=== PATIENT | male | born 1950 | race Caucasian/White ===

== ENCOUNTER 2016-12-05 18:53 | Emergency (ER) | payer MEDICARE, BC ==
--- NOTE | ~2016-12-05 | CR126 ---
[facility]. [facility] A Service of [facility] & [facility] RADIOLOGY TEXT RESULTS PATIENT: ANNY MARQUEZ LOCATION: SED : 48 UNIT #: [id number] AGE: [address]: DELMI MUNOZ SEX: M ORDER DR: [id number] [place] [id number] MR#: [id number] Acc #: [id number] NAME: ANNY MARQUEZ : 1950 SEX: M STUDY DATE/TIME: 12/05/2016 19:12 UNIT: SED ROOM: STUDY DESCRIPTION: CR Foot Complete Min 3 View Lt Attending Physician: Delmi Munoz Ordering Physician: Delmi Munoz Primary Care Physician: Julian Davalos M.D. MEDICAL IMAGING REPORT This report is preliminary unless electronic signature is present. EXAM Left foot, 3 views. INDICATIONS Left foot pain today. COMPARISON No comparisons. 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 There is no definite fracture. There are midfoot degenerative changes. No evidence for dislocation. IMPRESSION No acute findings. Degenerative changes as described. Dictated by... Hubert Phelps M.D. THIS IS AN ELECTRONICALLY VERIFIED REPORT Hubert Phelps M.D. at 12/10/2016 1:32 PM RADHA/marine TD: 12/06/2016 09:07 JOB #: [id number] MEDICAL IMAGING REPORT Page 1 of 1
[2016-12-05] MEDS ORDERED: NOVOLIN N100 UNIT/1 ×2 (19:00→19:01)
[2016-12-05] MEDS ORDERED: LISINOPRIL PO (19:00)
[2016-12-05] MEDS ORDERED: CLOPIDOGREL75 MG PO (19:01)
== END 2016-12-05 20:18 | disposition home or self-care (01) ==
LOC: SED 18:53
DX: S90.32XA Contusion of left foot, initial encounter (principal); E11.9 Type 2 diabetes mellitus without complications; I10 Essential (primary) hypertension; Z88.5 Allergy status to narcotic agent; Z79.4 Long term (current) use of insulin; Z79.899 Other long term (current) drug therapy; W20.8XXA Other cause of strike by thrown, projected or falling object, initial encounter; Y92.009 Unspecified place in unspecified non-institutional (private) residence as the place of occurrence of the external cause
CPT/HCPCS: 29405; 73630; 99283